=== PATIENT | male | born 1955 | race Caucasian/White ===

== ENCOUNTER 2016-09-20 21:23 | Observation (INO) | payer OTHER ==
[~2016-09-20] VITALS: Ht 172.7 cm; Wt 89.9 kg
--- NOTE | 2016-09-20 22:53 | DIAGNOSTIC IMAGING REPORT ---
PROCEDURE: CT ABD/PELVIS WITH CONTRAST INDICATION: Bilateral abdominal pain. History of cholecystectomy. TECHNIQUE: 125 ml of Isovue 300 were injected intravenously and axial images were obtained of the entire abdomen and pelvis with sagittal and coronal reformations. COMPARISON: None. FINDINGS: ABDOMEN: Mild increased fluid throughout the small bowel compatible with ileus. Cholecystectomy (surgical clips). Liver, spleen, pancreas, kidneys (right 2.4 cm upper pole simple cyst). and aorta are normal. Moderate degenerative changes of the lower lumbar spine with grade 1 (4 mm) degenerative listhesis of L4 on L5 , and 2 mm retrolisthesis of L5 on S1. PELVIS: There is moderate to marked distention of the appendix (1.4 cm) with two obstructing appendicoliths (10 mm, 12 mm). The rest of the pelvic structures are normal. No evidence of free fluid. IMPRESSION: 1. Moderate to marked distention of the appendix with obstructing appendicoliths. Findings are compatible with acute appendicitis (pelvic location). 2. Associated mild generalized distention of the small bowel most compatible ileus. 3. Status post cholecystectomy. 4. Moderate degenerative changes of the lower lumbar spine with L4-5 listhesis and L5-S1 retrolisthesis. 5. Findings discussed with KELLI Lane. All CT scans at this facility use dose modulation, iterative reconstruction, and/or weight-based dosing when appropriate to reduce radiation dose to as low as reasonably achievable.
--- NOTE | 2016-09-20 22:55 | ED NURSING NOTES ---
Clinical Report - Nurses [facility] [address] [place] [address] 09/20/2016 21:24 [id number] TRI[facility] Triage time 21:Sep 20 2016. Acuity: LEVEL 3. Chief Complaint: ABDOMINAL PAIN. 21:41 09/20/16. Alert. No acute distress. SEPSIS SCREEN: Sepsis Screen. Negative (no infection suspected/documented). TIMOTHY COMA SCORE: [place] Coma Scale: 15- eyes open spontaneously (4); best verbal response- oriented x 4 (5); best motor response- obeys commands (6). --21:41 Miriam Arteaga 21:41 09/20/16. BP: 101/83. HR: 75. RR: 16. O2 saturation: 95%. Temp: 99.1 F. Pain level now 2/10. --21:41 Miriam Arteaga 21:42 09/20/16. --21:42 Miriam Arteaga. Weight: 92.9 kg stated. Height/Length: 68 inches Per Patient. BMI: 31.1. --21:38 Miriam Arteaga. Medications Hydrochlorothiazide Oral ((unsure of dose-maybe 25mg)). --21:39 Miriam Arteaga Micardis Oral 40 mg, daily. --21:39 Miriam Arteaga. Allergies None. --21:39 Miriam Arteaga. History Arrived by private vehicle. Historian: patient. Accompanied by son. [facility] Onset. (The night of the 1st). ( Pt reports pain that started in his ribs and has moved down towards his groin. States the pain comes in waves. Worst pain is 6/10. Walking or standing makes the pain worse.). He has had constipation (2 days ago). He has had low grade fever and abdominal pain. No nausea, vomiting or diarrhea. Treatment ASSISTANT MANAGER OF OPERATIONS: (Aleve about 5 hours ago (500 mg) did help). PAST MEDICAL HX: Gallstones. No history of diabetes mellitus. No history of gastroesophageal reflux disease or peptic ulcer disease. Immunizations: up-to-date. SOCIAL HX: Never smoker. Occasional alcohol use. No drug use. No recent travel. No known contact with a sick individual. FALL RISK ASSESSMENT: Fall risk assessment completed. No fall risk identified. NUTRITIONAL RISK ASSESSMENT: The nutritional risk assessment revealed no deficiencies. FUNCTIONAL ASSESSMENT: Functional assessment: no impairments noted. LEARNING NEEDS ASSESSMENT: The learning needs assessment revealed no barriers. SKIN INTEGRITY ASSESSMENT: Skin integrity risk assessment completed. No skin integrity risk identified. --21:41 Miriam Arteaga ( Pt denies urinary frequency/pain on urination.). --21:42 Miriam Arteaga. PROBLEMS: Hypertension. --21:39 Miriam Arteaga. ADDITIONAL SURGERIES: Gallbladder Surgery. Knee replacement. Shoulder replacement. --21:40 Miriam Arteaga. Assessment The patient states feels the same. --21:41 Miriam Arteaga. Interventions ID band on patient. --21:41 Miriam Arteaga. PHYSICAL ASSESSMENT 21:41 09/20/16. Ambulatory to room. GENERAL / NEURO / PSYCH: Alert. Oriented X 4. Appears in no acute distress. HEENT: Mucous membranes are pink. RESPIRATORY: Respirations not labored. CVS: Capillary refill less than 2 seconds. GI / : Abdomen soft. Abdominal tenderness in the right lower quadrant, suprapubic area and left lower quadrant. SKIN: Skin is warm and dry. --21:41 Miriam Arteaga. NURSING PROGRESS NOTES 21:41 09/20/16. The plan of care for this patient has been created. Pulse oximeter and NIBP monitor placed on patient; monitor alarms on. Head of bed elevated. Reassurance given. Two patient identifiers checked. Call light placed in reach. Side rails up x 1. Bed placed in lowest position. Brakes of bed on. Patient ready for evaluation- chart flagged and ED physician and LEAF SUCKER OPERATOR notified. --21:41 Miriam Arteaga 21:53 09/20/2016 Site #1 started via IV in the right antecubital space with an 20g angiocath, with aseptic technique and good blood return; one attempt. Blood drawn: rainbow set. Labeled in the presence of the patient and sent to the lab. Saline lock flushed with 10 mL saline. --21:53 Miriam Arteaga 21:58 09/20/2016 Toradol IVP 30 mg given over 1 minute(s) via site #1. Allergies verified and confirmed 5 rights. IV patency established. IV site checked: no pain, redness, or swelling. IV flushed thoroughly pre- and post-medication administration. IVP given by RN. --22:44 Miriam Arteaga 22:32 09/20/16. Care transferred and report given (CHARLINE Bedoya). --22:47 Miriam Arteaga Patient ID band checked for patient name: patient confirmed. Clean catch urine collected with return of attila-colored clear urine; odor is normal; sample sent to lab for urinalysis. Specimen labeled in the presence of the patient. --23:19 Radha Munoz 00:25 09/21/2016 Toradol IVP 30 mg given over 1 minute(s) via site #1. Allergies verified and confirmed 5 rights. IV patency established. IV site checked: no pain, redness, or swelling. IV flushed thoroughly pre- and post-medication administration. IVP given by RN. --00:25 Sheriff Singh R.N. 00:26 09/21/2016 Started 2 gm of CEFOTETAN IVPB in bag #1 30 mL; at 360 mL/hr over 30 minute(s) via site #1 via IV pump. Allergies verified and confirmed 5 rights. IV patency established. IV site checked: no pain, redness, or swelling. IV flushed thoroughly pre- and post-medication administration. --00:26 Sheriff Singh R.N. 00:35 09/21/16. BP: 112/66. HR: 95. RR: 18. O2 saturation: 95%. Temp: 99.4 F. --00:36 Sheriff Singh R.N. DISPOSITION / DISCHARGE Admitted (0045 AM). Transported via stretcher by [employer]. Patient's personal items include: shirt, pants, socks and shoes; items were placed in belongings bag, given to the patient and transported with the patient. --00:50 Sheriff Singh R.N. 00:48 09/21/16. BP: 98/55. HR: 95. RR: 18. O2 saturation: 96%. Temp: 99 F. --00:50 Sheriff Singh R.N. Locked/Released at 09/21/2016 0:50 by Sheriff Singh R.N.
--- NOTE | 2016-09-20 22:55 | ED ORDER SUMMARY ---
..... Patient: DARCY MAYEN OrderSheet [facility] VisitID: [id number] [place] [address] 61y, M Registration Date/Time: 09/20/2016 ORDER SHEET Weight: 92.9 kg (stated) Allergies: None GENERAL ORDERS: CBC w Diff Urgent (21:46 09/20/2016 HBivens A.R.N.P.) (Ack 22:00 RKaruga) (22:44 ASchmuck) CMP Urgent (21:46 09/20/2016 HBivens A.R.N.P.) (Ack 22:00 RKaruga) (22:44 ASchmuck) UA-Culture if indicated Urgent (:46 09/20/2016 HBivens A.R.N.P.) (Ack 22:00 RKaruga) (23:15 RKaruga) Amylase Urgent (21:46 09/20/2016 HBivens A.R.N.P.) (Ack 22:00 RKaruga) (22:44 ASchmuck) Lipase Urgent (21:46 09/20/2016 HBivens A.R.N.P.) (Ack 22:00 RKaruga) (22:44 ASchmuck) CT Abd/Pel w Cont (No) (pending) Urgent (21:49 09/20/2016 HBivens A.R.N.P.) (Ack 22:00 RKaruga) (22:37 MCampbell) NPO (22:55 09/20/2016 HBivens A.R.N.P.) (Ack 23:33 RKaruga) MEDICATION ORDERS: Toradol IM 30 mg (NOW) (21:46 09/20/2016 HBivens A.R.N.P.) (Cancelled: Other22:03 HBivens A.R.N.P.) IV FLUIDS: IV Saline Lock (21:46 09/20/2016 HBivens A.R.N.P.) (21:53 ASchmuck) Toradol IV 30 mg (NOW) (22:03 09/20/2016 HBivens A.R.N.P.) (22:44 ASchmuck) Cefotetan IV 2 gm (NOW) (22:57 09/20/2016 Tiffany A.R.N.P.) (0:26 Dionne Crews) ORDER SHEET NOTES: [Electronically signed by Ailyn ButcherR.N.PJosie (23:12 09/20/2016)] [Electronically signed by Sheriff Eleonora Singh (00:50 09/21/2016)] [Electronically locked/signed by Sheriff Eleonora Singh (00:50 09/21/2016)]
--- NOTE | 2016-09-20 22:55 | ED NURSING NOTES ---
Clinical Report - Nurses [facility] [address] [place] [address] 09/20/2016 21:24 [id number] TRI[facility] Triage time 21:Sep 20 2016. Acuity: LEVEL 3. Chief Complaint: ABDOMINAL PAIN. 21:41 09/20/16. Alert. No acute distress. SEPSIS SCREEN: Sepsis Screen. Negative (no infection suspected/documented). TIMOTHY COMA SCORE: [place] Coma Scale: 15- eyes open spontaneously (4); best verbal response- oriented x 4 (5); best motor response- obeys commands (6). --21:41 Miriam Arteaga 21:41 09/20/16. BP: 101/83. HR: 75. RR: 16. O2 saturation: 95%. Temp: 99.1 F. Pain level now 2/10. --21:41 Miriam Arteaga 21:42 09/20/16. --21:42 Miriam Arteaga. Weight: 92.9 kg stated. Height/Length: 68 inches Per Patient. BMI: 31.1. --21:38 Miriam Arteaga. Medications Hydrochlorothiazide Oral ((unsure of dose-maybe 25mg)). --21:39 Miriam Arteaga Micardis Oral 40 mg, daily. --21:39 Miriam Arteaga. Allergies None. --21:39 Miriam Arteaga. History Arrived by private vehicle. Historian: patient. Accompanied by son. [facility] Onset. (The night of the 1st). ( Pt reports pain that started in his ribs and has moved down towards his groin. States the pain comes in waves. Worst pain is 6/10. Walking or standing makes the pain worse.). He has had constipation (2 days ago). He has had low grade fever and abdominal pain. No nausea, vomiting or diarrhea. Treatment NURSING PROGRAM MANAGER: (Aleve about 5 hours ago (500 mg) did help). PAST MEDICAL HX: Gallstones. No history of diabetes mellitus. No history of gastroesophageal reflux disease or peptic ulcer disease. Immunizations: up-to-date. SOCIAL HX: Never smoker. Occasional alcohol use. No drug use. No recent travel. No known contact with a sick individual. FALL RISK ASSESSMENT: Fall risk assessment completed. No fall risk identified. NUTRITIONAL RISK ASSESSMENT: The nutritional risk assessment revealed no deficiencies. FUNCTIONAL ASSESSMENT: Functional assessment: no impairments noted. LEARNING NEEDS ASSESSMENT: The learning needs assessment revealed no barriers. SKIN INTEGRITY ASSESSMENT: Skin integrity risk assessment completed. No skin integrity risk identified. --21:41 Miriam Arteaga ( Pt denies urinary frequency/pain on urination.). --21:42 Miriam Arteaga. PROBLEMS: Hypertension. --21:39 Miriam Arteaga. ADDITIONAL SURGERIES: Gallbladder Surgery. Knee replacement. Shoulder replacement. --21:40 Miriam Arteaga. Assessment The patient states feels the same. --21:41 Miriam Arteaga. Interventions ID band on patient. --21:41 Miriam Arteaga. PHYSICAL ASSESSMENT 21:41 09/20/16. Ambulatory to room. GENERAL / NEURO / PSYCH: Alert. Oriented X 4. Appears in no acute distress. HEENT: Mucous membranes are pink. RESPIRATORY: Respirations not labored. CVS: Capillary refill less than 2 seconds. GI / : Abdomen soft. Abdominal tenderness in the right lower quadrant, suprapubic area and left lower quadrant. SKIN: Skin is warm and dry. --21:41 Miriam Arteaga. NURSING PROGRESS NOTES 21:41 09/20/16. The plan of care for this patient has been created. Pulse oximeter and NIBP monitor placed on patient; monitor alarms on. Head of bed elevated. Reassurance given. Two patient identifiers checked. Call light placed in reach. Side rails up x 1. Bed placed in lowest position. Brakes of bed on. Patient ready for evaluation- chart flagged and ED physician and NEWS WRITER notified. --21:41 Miriam Arteaga 21:53 09/20/2016 Site #1 started via IV in the right antecubital space with an 20g angiocath, with aseptic technique and good blood return; one attempt. Blood drawn: rainbow set. Labeled in the presence of the patient and sent to the lab. Saline lock flushed with 10 mL saline. --21:53 Miriam Arteaga 21:58 09/20/2016 Toradol IVP 30 mg given over 1 minute(s) via site #1. Allergies verified and confirmed 5 rights. IV patency established. IV site checked: no pain, redness, or swelling. IV flushed thoroughly pre- and post-medication administration. IVP given by RN. --22:44 Miriam Arteaga 22:32 09/20/16. Care transferred and report given (CHARLINE Bedoya). --22:47 Miriam Arteaga Patient ID band checked for patient name: patient confirmed. Clean catch urine collected with return of attila-colored clear urine; odor is normal; sample sent to lab for urinalysis. Specimen labeled in the presence of the patient. --23:19 Radha Munoz 00:25 09/21/2016 Toradol IVP 30 mg given over 1 minute(s) via site #1. Allergies verified and confirmed 5 rights. IV patency established. IV site checked: no pain, redness, or swelling. IV flushed thoroughly pre- and post-medication administration. IVP given by RN. --00:25 Sheriff Singh R.N. 00:26 09/21/2016 Started 2 gm of CEFOTETAN IVPB in bag #1 30 mL; at 360 mL/hr over 30 minute(s) via site #1 via IV pump. Allergies verified and confirmed 5 rights. IV patency established. IV site checked: no pain, redness, or swelling. IV flushed thoroughly pre- and post-medication administration. --00:26 Sheriff Singh R.N. 00:35 09/21/16. BP: 112/66. HR: 95. RR: 18. O2 saturation: 95%. Temp: 99.4 F. --00:36 Sheriff Singh R.N. DISPOSITION / DISCHARGE Admitted (0045 AM). Transported via stretcher by [employer]. Patient's personal items include: shirt, pants, socks and shoes; items were placed in belongings bag, given to the patient and transported with the patient. --00:50 Sheriff Singh R.N. 00:48 09/21/16. BP: 98/55. HR: 95. RR: 18. O2 saturation: 96%. Temp: 99 F. --00:50 Sheriff Singh R.N. Locked/Released at 09/21/2016 0:50 by Sheriff Singh R.N.
--- NOTE | 2016-09-20 22:55 | ED CLINICAL REPORT ---
Clinical Report - Physicians/Mid Levels [facility] [address] [place] [address] 09/20/2016 21:24 [id number] Time Seen: 2134; upon arrival, initial patient contact, initial documentation, patient care assumed. Arrived- By private vehicle. HISTORY OF PRESENT ILLNESS Chief Complaint: ABDOMINAL PAIN and FLANK PAIN. At its maximum, severity described as moderate. When seen in the E.D., it was almost gone. Modifying factors. Not worsened by anything. Not relieved by anything. This started last night and is still present. It was abrupt in onset and has been constant and waxing/waning. It is described as "pain" and it is described as located in the right flank and the right lower quadrant and radiating to the right lower quadrant of the abdomen. No nausea, loss of appetite, vomiting or diarrhea. (thinks he has a kidney stone because pain started in his back and now it is in his abd, no hx of stones). No recent travel. Similar symptoms previously: None. Recent medical care: Not recently seen/assessed. REVIEW OF SYSTEMS No constipation, black stools, hematemesis, difficulty with urination or pain with urination. No urinary frequency, bloody stools, chest pain or difficulty breathing. He has had fever of 99 F. All systems otherwise negative, except as recorded above. PAST HISTORY See nurses notes. PROBLEMS: Hypertension. --21:39 Miriam Arteaga. ADDITIONAL SURGERIES: Gallbladder Surgery. Knee replacement. Shoulder replacement. --21:40 Miriam Arteaga. SOCIAL HISTORY Never smoker. Occasional alcohol use. No drug use. No recent travel. Is a local resident. FAMILY HISTORY Negative. ADDITIONAL NOTES The nursing notes have been reviewed with agreement regarding the chief complaint, HPI, ROS, PMH and patient medications and allergies. PHYSICAL EXAM Vital Signs: 09/20/2016 21:41 BP: 101/83. HR: 75. RR: 16. O2 saturation: 95%. Temp: 99.1 F. Have been reviewed as normal and appear to be correct. Appearance: Alert. Oriented X3. No acute distress. Eyes: Pupils equal, round and reactive to light. Eyes normal inspection. Neck: Normal inspection. Neck supple. CVS: Normal heart rate and rhythm. Heart sounds normal. Pulses normal. Respiratory: No respiratory distress. Breath sounds normal. Chest nontender. Abdomen: Soft. Bowel sounds normal. No organomegaly. No mass. Tenderness present. Back: Normal inspection. Skin: Skin warm and dry. Normal skin color. No rash. Normal skin turgor. Extremities: Extremities exhibit normal ROM. No lower extremity edema. Neuro: Oriented X 3. No motor deficit. No sensory deficit. LABS, X-RAYS, AND EKG Abdominal CT: . The study was interpreted by the radiologist and discussed with the radiologist. Interpretation time: 22:50. Laboratory Tests: CBC w Diff: (VASHTI: 09/20/2016 21:50) ( MsgRcvd 09/20/2016 22:01) Final results Test Result Flag Units (Reference) WHITE BLOOD COUNT 11.9 H K/uL (4.5-11.5) RED BLOOD COUNT 4.59 M/uL (4.50-5.90) HEMOGLOBIN 14.9 gm/dL (13.5-17.5) HEMATOCRIT 44.2 % (41.0-53.0) MEAN CELL VOLUME 96 fL (80-100) MEAN CORPUSCULAR HGB 33 pg (26-34) MEAN CORPUSCULAR HGB CONC 34 g/dL (31-37) RED CELL DISTRIBUTION WIDTH 12.6 % (11.6-14.8) PLATELET COUNT 193 K/uL (150-400) NEUTROPHIL % 87.1 H % (50-75) LYMPH % 7.7 L % (25-40) MONO % 5.0 % (3-14) EOSINOPHIL % 0 % (0-4) BASOPHIL % 0.2 % (0-2) CMP: (VASHTI: 09/20/2016 21:50) ( MsgRcvd 09/20/2016 22:16) Final results Test Result Flag Units (Reference) GLUCOSE 130 H mg/dL (70-110) BUN 20 H mg/dL (7-18) CREATININE 1.2 mg/dL (0.6-1.3) Estimated GFR >60 mL/min Estimated GFR- >60 mL/min Note: Persistent reduction over 3 months in eGFR<60 mL/min/1.73 m2 defines CKD. Patients with eGFR values>=60 mL/min/1.73 m2 may also have CKD if evidence ofpersistent proteinuria. Additional information may be foundat www.kidney.org. SODIUM 133 L mmol/L (136-145) POTASSIUM 3.4 L mmol/L (3.5-5.1) CHLORIDE 95 L mmol/L (98-107) CARBON DIOXIDE 29 mmol/L (21-32) CALCIUM 8.5 mg/dL (8.5-10.1) TOTAL PROTEIN 7.6 g/dL (6.4-8.2) ALBUMIN 3.6 g/dL (3.3-5.0) BILIRUBIN, TOTAL 1.1 H mg/dL (0.0-1.0) ALKALINE PHOSPHATASE 73 U/L (46-116) AST (SGOT) 18 U/L (15-37) ALT (SGPT) 19 U/L (12-78) LIPASE 92 U/L (73-393) AMYLASE 42 U/L (25-115) . PROGRESS AND PROCEDURES Course of Care: 22:53 09/20/16. pt aware of appy and need for admit and surgery. Discussed case with on-call health care provider, (22:[address] Loyola). Reviewed test results. Agreed upon treatment plan and decision to admit. Health care provider will see patient in hospital. Differential Diagnosis: I considered gastritis, gastroenteritis, peptic ulcer disease, gastroesophageal reflux disease, acute appendicitis, diverticulitis, colon cancer, ulcerative colitis, Crohn's disease, hepatitis, pancreatitis, urinary tract infection, ureterolithiasis and viral syndrome as a possible cause of abdominal pain in this patient. This is a partial list of diagnoses considered. Above considerations are based on history, physical exam, reassessment, laboratory data and other information. Differential diagnosis was discussed with patient. Disposition: Admitted to Acute Care. 22:51. Condition: good and stable. CLINICAL IMPRESSION Acute appendicitis. (Electronically signed by Ailyn Butcher A.R.N.P. 09/20/2016 23:12)
--- NOTE | 2016-09-20 22:55 | ED ORDER SUMMARY ---
..... Patient: DARCY MAYEN OrderSheet [facility] VisitID: [id number] [place] [address] 61y, M Registration Date/Time: 09/20/2016 ORDER SHEET Weight: 92.9 kg (stated) Allergies: None GENERAL ORDERS: CBC w Diff Urgent (21:46 09/20/2016 HBivens A.R.N.P.) (Ack 22:00 RKaruga) (22:44 ASchmuck) CMP Urgent (21:46 09/20/2016 HBivens A.R.N.P.) (Ack 22:00 RKaruga) (22:44 ASchmuck) UA-Culture if indicated Urgent (:46 09/20/2016 HBivens A.R.N.P.) (Ack 22:00 RKaruga) (23:15 RKaruga) Amylase Urgent (21:46 09/20/2016 HBivens A.R.N.P.) (Ack 22:00 RKaruga) (22:44 ASchmuck) Lipase Urgent (21:46 09/20/2016 HBivens A.R.N.P.) (Ack 22:00 RKaruga) (22:44 ASchmuck) CT Abd/Pel w Cont (No) (pending) Urgent (21:49 09/20/2016 HBivens A.R.N.P.) (Ack 22:00 RKaruga) (22:37 MCampbell) NPO (22:55 09/20/2016 HBivens A.R.N.P.) (Ack 23:33 RKaruga) MEDICATION ORDERS: Toradol IM 30 mg (NOW) (21:46 09/20/2016 HBivens A.R.N.P.) (Cancelled: Other22:03 HBivens A.R.N.P.) IV FLUIDS: IV Saline Lock (21:46 09/20/2016 HBivens A.R.N.P.) (21:53 ASchmuck) Toradol IV 30 mg (NOW) (22:03 09/20/2016 HBivens A.R.N.P.) (22:44 ASchmuck) Cefotetan IV 2 gm (NOW) (22:57 09/20/2016 Tiffany A.R.N.P.) (0:26 Dionne Crews) ORDER SHEET NOTES: [Electronically signed by Ailyn ButcherR.N.PJosie (23:12 09/20/2016)] [Electronically signed by Sheriff Eleonora Singh (00:50 09/21/2016)] [Electronically locked/signed by Sheriff Eleonora Singh (00:50 09/21/2016)]
[2016-09-20] MEDS ORDERED: MICARDIS40 MG PO (23:50)
[2016-09-20] MEDS ORDERED: HYDROCHLOROTHIA25 MG PO (23:50)
[2016-09-21] VITALS (14 sets, daily range): BP systolic 88–121; BP diastolic 57–74
--- NOTE | 2016-09-21 00:50 | ED MED RECONCILIATION SUMMARY ---
Patient: DARCY MAYEN Medication Reconciliation Report [facility] VisitID: [id number] [address] [place] [address] 61y, M Registration Date/Time: 09/20/2016 Weight: 92.9 kg Height/Length: 68 in. BMI: 31.1 ALLERGIES: None The patient's Home Medications are listed below: THE FOLLOWING MEDICATIONS NEED TO BE RECONCILED: Hydrochlorothiazide Oral, (unsure of dose-maybe 25mg) Micardis Oral 40 mg, daily The source(s) of the original Home Medication information: Not obtained. The following Medications were given to the patient in the Emergency Department: Toradol [IVP] IVP 30 mg, administered: 09/20/2016 9:58:00 PM Toradol [IVP] IVP 30 mg, administered: 09/21/2016 12:25:00 AM CEFOTETAN [IVPB] IVPB bolus 0, then 2 gm 360 mL/hr, administered: 09/21/2016 12:26:00 AM The following Medications were prescribed to the patient: None.
--- NOTE | 2016-09-21 00:50 | ED DISCHARGE INSTRUCTIONS ---
Patient: NAHOMILESLIE DARCY Antonio General Instructions [facility] VisitID: [id number] [address] [place] [address] 61y, M Registration Date/Time: 09/20/2016 Acute appendicitis. (Electronically signed by Ailyn Butcher A.R.N.P. 09/20/2016 23:12)
--- NOTE | 2016-09-21 00:50 | ED DISCHARGE INSTRUCTIONS ---
Patient: NAHOMILESLIE DARCY Antonio General Instructions [facility] VisitID: [id number] [address] [place] [address] 61y, M Registration Date/Time: 09/20/2016 Acute appendicitis. (Electronically signed by Ailyn Butcher A.R.N.P. 09/20/2016 23:12)
--- NOTE | 2016-09-21 00:50 | ED MAR SUMMARY ---
..... Medication Administration Record [facility] [address] [place] [address] Patient: DARCY MAYEN Visit ID: [id number] 61y, M Weight: 92.9 kg Height/Length: 68 in BMI: 31.1 ALLERGIES: None Given 21:58 09/20/2016 Miriam Arteaga, Medication Administered: TORADOL [IVP], Dose: 30 mg IVP over 1 minute(s), Site: #1 right AC. Medication Ordered: Toradol IV 30 mg (NOW). Given 00:25 09/21/2016 Sheriff Singh R.N. Medication Administered: TORADOL [IVP], Dose: 30 mg IVP over 1 minute(s), Site: #1 right AC. Medication Ordered: Toradol IV 30 mg (NOW). Start 00:26 09/21/2016 Sheriff Singh R.NJosie Medication Administered: CEFOTETAN [IVPB], Dose: 2 gm IVPB over 30 minute(s), Rate: 360 mL/hr, Dispensed: 30 mL bag, Site: #1 right AC. Medication Ordered: Cefotetan IV 2 gm (NOW).
--- NOTE | 2016-09-21 00:50 | ED MED RECONCILIATION SUMMARY ---
Patient: DARCY MAYEN Medication Reconciliation Report [facility] VisitID: [id number] [address] [place] [address] 61y, M Registration Date/Time: 09/20/2016 Weight: 92.9 kg Height/Length: 68 in. BMI: 31.1 ALLERGIES: None The patient's Home Medications are listed below: THE FOLLOWING MEDICATIONS NEED TO BE RECONCILED: Hydrochlorothiazide Oral, (unsure of dose-maybe 25mg) Micardis Oral 40 mg, daily The source(s) of the original Home Medication information: Not obtained. The following Medications were given to the patient in the Emergency Department: Toradol [IVP] IVP 30 mg, administered: 09/20/2016 9:58:00 PM Toradol [IVP] IVP 30 mg, administered: 09/21/2016 12:25:00 AM CEFOTETAN [IVPB] IVPB bolus 0, then 2 gm 360 mL/hr, administered: 09/21/2016 12:26:00 AM The following Medications were prescribed to the patient: None.
--- NOTE | 2016-09-21 00:50 | ED MAR SUMMARY ---
..... Medication Administration Record [facility] [address] [place] [address] Patient: DARCY MAYEN Visit ID: [id number] 61y, M Weight: 92.9 kg Height/Length: 68 in BMI: 31.1 ALLERGIES: None Given 21:58 09/20/2016 Miriam Arteaga, Medication Administered: TORADOL [IVP], Dose: 30 mg IVP over 1 minute(s), Site: #1 right AC. Medication Ordered: Toradol IV 30 mg (NOW). Given 00:25 09/21/2016 Sheriff Singh R.N. Medication Administered: TORADOL [IVP], Dose: 30 mg IVP over 1 minute(s), Site: #1 right AC. Medication Ordered: Toradol IV 30 mg (NOW). Start 00:26 09/21/2016 Sheriff Singh R.NJosie Medication Administered: CEFOTETAN [IVPB], Dose: 2 gm IVPB over 30 minute(s), Rate: 360 mL/hr, Dispensed: 30 mL bag, Site: #1 right AC. Medication Ordered: Cefotetan IV 2 gm (NOW).
--- NOTE | 2016-09-21 08:43 | Consultation Report ---
History Chief Complaint Abdominal pain History of Present Illness 61-year-old male admitted via the emergency room by Dr. Loyola. The patient states 2 days ago he started developing low back discomfort, suprapubic discomfort, a low-grade temperature and chills. Yesterday he took some Aleve and felt somewhat better. The discomfort quickly exacerbated and complained of lower midline cramping abdominal pain. Patient was evaluated in emergency room at [facility]. A CT of his abdomen showed a distended appendix with an appendicolith. Pain is now localized to the lower abdomen and nonradiating, described as a sharp exacerbated by movement or coughing. Not associated with nausea. Not associated with diarrhea. Patient denies prior history of abdominal pain like this. Patient History 1. Acute appendicitis Social History . 2 sons, alive and well. Patient does not smoke. Patient rarely drinks alcohol. Patient does not use recreational drugs. 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 PAST MEDICAL/SURGICAL HISTORY: Patient is followed by Dr. Sierra at the [facility]. History of hypertension. Status post cholecystectomy, [facility] 2009 Status post bilateral shoulder replacement. Status post right knee replacement. Status post rhinoplasty. Status post vasectomy. Patient has had a colonoscopy x2 the last 2 years ago FAMILY HISTORY: Mother 90 years old, with no Father age 93 pre-diabetic, osteoporosis. 2 brothers alive and well. No family history of suicide or depression. Medications and Allergies Medications Current Medications Sig/Sandra Start time Last Medication Dose Route Stop Time Status Admin Famotidine/Sodium 50 ML Q12HR 09/21 0900 AC Chloride IV Metoclopramide HCl 10 MG Q6HR 09/21 0600 AC 09/21 IV 0631 Lactated Ringer's 1,000 ML ASDIRECTED 09/21 0215 AC 09/21 IV 0309 Meperidine HCl 12.5 MG Q30MIN PRN 09/21 0215 AC 09/21 IV 0424 Ondansetron HCl 4 MG Q6H PRN 09/21 0215 AC IV Allergies Coded Allergies: NKA (09/20/16) Reconcile Medications Scheduled Medications Telmisartan (Micardis) 40 MG TAB 40 MG PO DAILY (Reported) Miscellaneous Medications Hydrochlorothiazide 25 mg (Hydrochlorothiazide 25 MG) 25 MG TAB (Reported) Review of Systems Other No history of hepatitis, jaundice, rheumatic fever, heart murmurs, requiring antibiotics, blood transfusions, bleeding tendency, depression, or suicidal ideation. Remaining 12 point review of systems is negative Physical Exam Vital Signs / I&Os Vital Signs Date Time Temp Pulse Resp B/P Pulse O2 O2 Flow FiO2 Ox Delivery Rate 09/21 0626 98.2 81 12 92/57 97 09/21 0521 99.0 88 16 88/63 99 Room Air 0.0 09/21 0117 Room Air 09/21 0103 99.3 104 18 121/67 96 Room Air 0.0 General Appearance Alert, Oriented X3, Cooperative, No acute distress HEENT Atraumatic, PERRLA, EOMI, Moist mucous membranes Lungs Clear to auscultation Neck Supple, No JVD, No masses, No thyromegaly, No lymphadenopathy, 2+ carotid pulse wo bruit Cardiovascular Regular rate and rhythm Abdomen hypoactive bowel sounds. Positive Rovsing sign and positive peritoneal signs Extremities No cyanosis, No clubbing, No edema Skin warm and dry Neurological No lateralizing signs Psych/Mental Status Mental status normal, Mood normal LAB Results Laboratory Tests 09/20 09/20 2150 2315 Chemistry Plasma Sodium (136 - 145 mmol/L) 133 Plasma Potassium (3.5 - 5.1 mmol/L) 3.4 Plasma Chloride (98 - 107 mmol/L) 95 CO2 (Enzymatic) (21 - 32 mmol/L) 29 BUN (7 - 18 mg/dL) 20 Creatinine (0.6 - 1.3 mg/dL) 1.2 Est GFR ( Amer) (mL/min) >60 Est GFR (Non-Af Amer) (mL/min) >60 Glucose (70 - 110 mg/dL) 130 Plasma Calcium (8.5 - 10.1 mg/dL) 8.5 Total Bilirubin (0.0 - 1.0 mg/dL) 1.1 AST (15 - 37 U/L) 18 ALT (12 - 78 U/L) 19 Alkaline Phosphatase (46 - 116 U/L) 73 Total Protein (6.4 - 8.2 g/dL) 7.6 Albumin (3.3 - 5.0 g/dL) 3.6 Amylase (25 - 115 U/L) 42 Lipase (73 - 393 U/L) 92 Hematology WBC (4.5 - 11.5 K/uL) 11.9 RBC (4.50 - 5.90 M/uL) 4.59 Hgb (13.5 - 17.5 gm/dL) 14.9 Hct (41.0 - 53.0 %) 44.2 MCV (80 - 100 fL) 96 MCH (26 - 34 pg) 33 RDW (11.6 - 14.8 %) 12.6 Neut % (Auto) (50 - 75 %) 87.1 Lymph % (Auto) (25 - 40 %) 7.7 [place] % (Auto) (3 - 14 %) 5.0 Eos % (Auto) (0 - 4 %) 0 Baso % (Auto) (0 - 2 %) 0.2 Plt Count, EDTA (150 - 400 K/uL) 193 PUBS MCHC (31 - 37 g/dL) 34 Urines Urine Color YELLOW Urine Appearance CLEAR Urine pH (5.0 - 8.0) 5.5 Ur Specific [place] (1.010 - 1.030) 1.015 Urine Protein (NEGATIVE) TRACE Urine Ketones (NEGATIVE) TRACE Urine Blood (NEGATIVE) 2+ Urine Nitrite (NEGATIVE) NEGATIVE Urine Bilirubin (NEGATIVE) NEGATIVE Urine Urobilinogen (0.2 - 1.0 EU/dL) 0.2 Ur Leukocyte Esterase (NEGATIVE) NEGATIVE Urine RBC (0 - 1 rbc/hpf) 1-3 Urine WBC (0 - 1 wbc/hpf) RARE Ur Epithelial Cells (0 - 5 EPI/hpf) RARE Urine Bacteria (NONE SEEN) TRACE (<1+) Urine Glucose (NEGATIVE) NEGATIVE Urine Comment CULT NOT INDICATED Microbiology Date/Time Procedure - Status Source Growth 09/21 0100 MRSA Screen - RECD NASAL Imaging CT of abdomen distended appendix with appendicolith consistent with acute appendicitis reviewed and discussed with radiology Assessment and Plan Problem List 1. Acute appendicitis Plan Discussed the findings with the patient. Recommend laparoscopic appendectomy. The procedure had been explained to the patient including the potential risks of trocar site infection, trocar site hernia, damage to local structures, postoperative intra-abdominal abscess. Patient understands and agrees to proceed. All questions answered to his satisfaction. He was scheduled for urgent surgery today
--- NOTE | 2016-09-21 10:49 | Operative Report ---
Operative Report Date of Surgery: 09/21/16 Preoperate Diagnosis: Appendicitis, appendicoliths Postoperative Diagnosis: perforated appendicitis with merlin peritonitis Surgeon: Nain Camargo MD Pool Manager Surgeon: none Procedure Performed: Laparoscopic appendectomy Anesthesia: Gen. endotracheal Indications: 61-year-old male with a two-day history of low back and suprapubic pain, abdominal complaints. Yesterday, exacerbation of pain in the lower abdomen. Evaluated in emergency room was noted have a white count of 11.9. CT of his abdomen interpreted by radiology as a distended appendix with a fecalith. The examination revealed peritoneal signs and he was scheduled for surgery. FINDINGS: Generalized peritonitis, purulent fluid along the right lower and upper gutter, right subdiaphragmatic, pelvis and left gutter and interloop small bowel. Merlin fibrinous exudate covering areas of small bowel, left lower quadrant, pelvis and right lower quadrant. The perforated appendix/ appendicitis Surgical Technique: Patient brought to the operating room. Placed in the dorsal supine position. Patient underwent general endotracheal anesthesia by the anesthesiology department. After proper anesthesia had taken effect patient's abdomen was prepped using Betadine and draped in a sterile fashion. An infraumbilical incision made clear down to skin and subcutaneous tissue and varies needle was inserted through this site into the abdominal cavity. After ascertaining its appropriate position with suction irrigation and pneumoperitoneum obtained using CO2 insufflation trocar suture 14 15 mmHg pressure. Once this pressure was reached varies needle was removed and replaced the 10 mm trocar. The trocar removed after which which a laparoscopic video camera was introduced into the abdominal cavity. Under direct visualization a 5 mm trocar was placed in the suprapubic region. A separate 5 mm trocar was placed in the left lower quadrant. Each entered the abdominal cavity under direct visualization. The trochars removed , leaving the sleeves behind. Instrumentation was introduced into the abdominal cavity. The aforementioned findings noted. The purulent fluid was aspirated and sent for cultures. Internal fluid collections were broken down using blunt dissection and the abdominal cavity, irrigated copiously with warm normal saline and about solution. Dissection right lower quadrant revealed the appendix to be perforated. The appendix was identified and the second meso- appendix was taken down using the ThunderBeat. The base of the appendix was ligated in continuity using 0 chromic Liga-Loops. The appendix was then transected between the Liga-Loop ties using the Endo Khushbu. The appendix was placed in a sterile specimen container bag and retrieved from the abdominal cavity and sent to pathology. The appendiceal stump was cauterized using the ThunderBeat. The entire abdominal cavity , paying particular attention to the subdiaphragmatic region, right and left gutter .an intra-intestinal loops of matted bowel with warm normal saline antibiotic solution. The irrigant suctioned out. Hemostasis achieved. A 10 mm Moris-Lacy drain was placed within the abdominal cavity along the lower right gutter, pelvis and brought out through our 5 mm suprapubic trocar site. The drain was sutured using 3-0 nylon to prevent dislodgment and attached to bulb suction. The pneumoperitoneum released. All trochars removed from the abdominal cavity. All trochar sites were approximated using 4-0 subdermal Polysorb suture. Steri-Strips were placed over the wound. Sterile occlusive dressings were placed over each surgical site. Patient was extubated and transferred to recovery room in stable condition. There were no intraoperative complications. CONDITION: Stable to postoperative anesthesia recovery room COMPLICATIONS: None ESTIMATED BLOOD LOSS: None FLUIDS: 400 cc lactate Ringer's DRAINS: 10 mm Moris-Lacy drain SPECIMEN: Appendix, peritoneal fluid cultures
[2016-09-22 02:15] VITALS: BP 89/63
[2016-09-22 02:16] VITALS: BP 102/61
[2016-09-22] MEDS ORDERED: HYCET1 ML PO (06:39)
--- NOTE | 2016-09-22 06:41 | Provider's Discharge Care Plan ---
Problem, Goal, Plan Problem List 1. Status post laparoscopic appendectomy Goals: Improve disease control, Therapeutic intervention Instructions: Follow up as directed, Take meds as directed, [place] drain care instructions
[2016-09-22 06:42] VITALS: BP 95/65
[2016-09-22] MEDS ORDERED: LEVAQUIN750 MG PO (06:59)
[2016-09-22] MEDS ORDERED: METRONIDAZOLE500 MG PO (06:59)
--- NOTE | 2016-09-22 07:10 | Progress Note ---
Subjective General 61-year-old male postop day 1 laparoscopic appendectomy perforated appendicitis. Awake, alert, ambulatory, tolerating by mouth. No flatus, no bowel movement yet. No abdominal complaints Physical Exam Vital Signs / I&Os Vital Signs Date Time Temp Pulse Resp B/P Pulse O2 O2 Flow FiO2 Ox Delivery Rate 09/22 0642 97.9 59 18 95/65 96 Room Air 0.0 07/05 0216 102/61 07/05 0215 97.7 70 14 89/63 96 Room Air 0.0 07/04 2225 97.9 75 16 106/65 95 Room Air 07/04 1946 Room Air 07/04 1844 98.1 79 16 96/72 94 07/04 1447 111/70 07/04 1345 97.9 81 100/68 96 Room Air 0.0 07/04 1330 80 111/69 96 Room Air 0.0 07/04 1315 82 114/67 97 Room Air 0.0 I&O 09/21 0800 07/04 1600 07/05 0000 Intake Total 356 2042 595 Output Total 250 2370 575 Balance 106 -328 20 General Appearance Oriented X3, Cooperative, No acute distress HEENT Moist mucous membranes Lungs Clear to auscultation Cardiovascular Regular rate and rhythm Abdomen hypoactive bowel sounds. Moris-Lacy drain putting out serosanguineous fluid. Dressing change. All trocar sites clean. Extremities No cyanosis, No edema Skin warm and dry Neurological No lateralizing signs Psych/Mental Status Mental status normal LAB Results Peritoneal cultures pending. Laboratory Tests 09/22 514 Hematology WBC (4.5 - 11.5 K/uL) 11.9 RBC (4.50 - 5.90 M/uL) 3.91 Hgb (13.5 - 17.5 gm/dL) 12.9 Hct (41.0 - 53.0 %) 37.8 MCV (80 - 100 fL) 97 MCH (26 - 34 pg) 33 RDW (11.6 - 14.8 %) 12.7 Neut % (Auto) (50 - 75 %) 88.5 Lymph % (Auto) (25 - 40 %) 4.7 [place] % (Auto) (3 - 14 %) 6.7 Eos % (Auto) (0 - 4 %) 0.1 Baso % (Auto) (0 - 2 %) 0 Plt Count, EDTA (150 - 400 K/uL) 178 PUBS MCHC (31 - 37 g/dL) 34 Microbiology Date/Time Procedure - Status Source Growth 09/21 1000 Deep Wound Culture - RES ABDOMEN 09/21 1000 Deep Wound Culture - RES ABDOMEN 09/21 1000 Gram Stain - RES ABDOMEN Assessment and Plan Problem List 1. Status post laparoscopic appendectomy Plan Stable postop day 1. Discharge on clear liquid diet and passing flatus. Followup [facility] in 3 days. Wound care instructions given. Moris- Lacy drain care instructions given. Medications:Hycet elixir 1 tablespoon Q6 hours when necessary pain #8 ounces. Levaquin 750 mg 1 tablet daily #7. Flagyl 500 mg 1 tablet twice a day #14 given. All questions answered. Patient's satisfaction for discharge.
== END 2016-09-22 10:45 | disposition home or self-care (01) ==
LOC: ED SRH 21:23 → TRANS SRH 23:13 → CC SRH 23:13
PROVIDERS: Specialist; ADMIT Surgery
PROC: 0DTJ4ZZ Resection of Appendix, Percutaneous Endoscopic Approach (ICD-10-PCS; principal; 2016-09-21 09:15)
DX: K35.2 Acute appendicitis with generalized peritonitis (principal); I10 Essential (primary) hypertension
CPT/HCPCS: 29229; 29259; 29264; 50002; 60001; 70002; 80102; 80248; 80813; 81238; 81642; 82794; 82897; 83338; 83343; 83587; 83919; 83982; 84038; 84044; 90004; 90074; 90100; 90131; 90309; 90470; 91672; 92132; 92235; 92530; 95059